=== PATIENT | female | born 1960 | race Caucasian/White ===

== ENCOUNTER 2018-03-22 13:14 | Emergency (ER) | payer OTHER ==
[~2018-03-22] VITALS: Ht 160 cm; Wt 59.0 kg
[~2018-03-22 13:14] MED LIST: HCTZ; LORAZEPAM; OMEPRAZOLE
[2018-03-22] MEDS ORDERED: ONDANSETRON HCL 4MG/2ML VIAL IV STA (14:04)
[2018-03-22] MEDS ORDERED: SODIUM CHLORIDE 0.9% 1,000 ML IV ONE (14:04)
[2018-03-22] MEDS ORDERED: FAMOTIDINE 20MG/2ML VIAL IV STA (14:04)
[2018-03-22] MEDS ORDERED: DIPHENHYDRAMINE 50MG/ML VIAL IV ONE (14:15)
[2018-03-22 14:21] LABS: BASOPHILS % 0.4 % (0.0-2.0); EOSINOPHILS % 0.3 % (0.0-5.0); HEMATOCRIT. 42.3 % (36.0-48.0); HEMOGLOBIN. 14.4 g/dL (12.0-16.0); LYMPHOCYTES % 18.8 % (20.0-50.0); MEAN CORPUSCULAR HEMOGLOBIN 28.5 pg (28.0-32.0); MEAN CORPUSCULAR VOLUME 83.9 fL (81.0-99.0); MONOCYTES % 12.3 % (2.0-8.0); NEUTROPHILS % 68.2 % (40.0-76.0); PLATELET 198 x1000/uL (130-400); RED BLOOD CELL COUNT 5.04 mill/uL (4.2-5.4); RED CELL DISTRIBUTION WIDTH 13.6 % (11.6-14.6)
[2018-03-22 14:27] LABS: CHLORIDE 100 mEq/L (98-107)
[2018-03-22 14:30] LABS: PARTIAL THROMBOPLASTIN TIME 27.5 sec (23.4-31.0); PROTHROMBIN TIME 10.4 sec (9.4-11.6)
[2018-03-22 14:59] LABS: CLARITY URINE CLOUDY (CLEAR); COLOR URINE YELLOW (YELLOW); KETONES URINE TRACE (NEGATIVE); LEUKOCYTE ESTERASE URINE TRACE (NEGATIVE); NITRITE URINE NEGATIVE (NEGATIVE); OCCULT BLOOD URINE NEGATIVE (NEGATIVE); PH URINE 8.5 (4.5-8.0); PROTEIN URINE NEGATIVE (NEGATIVE); SPECIFIC GRAVITY URINE 1.016 (1.005-1.030)
[2018-03-22] MEDS ORDERED: POTASSIUM CHLORIDE 20MEQ TABLET SR PO SCH (15:15)
[2018-03-22 18:01] VITALS: BP 118/76
== END 2018-03-22 19:00 | disposition home or self-care (01) ==
LOC: ER 13:24
DX: T50.905A Adverse effect of unspecified drugs, medicaments and biological substances, initial encounter (principal); K21.9 Gastro-esophageal reflux disease without esophagitis; K59.00 Constipation, unspecified; R51 Headache; Y92.89 Other specified places as the place of occurrence of the external cause
CPT/HCPCS: 36415; 80053; 81003; 82962; 83690; 85025; 85610; 85730; 93005; 96361; 96374; 96375; 99285; J1200; J2405; J3490; J7030

== ENCOUNTER 2018-05-28 10:04 | Emergency (ER) | payer OTHER ==
[~2018-05-28] VITALS: Ht 152.4 cm; Wt 76.0 kg
[2018-05-28] MEDS ORDERED: ONDANSETRON 4MG ODT PO ONE (13:45)
[2018-05-28] MEDS ORDERED: KETOROLAC 60MG/2ML VIAL IM ONE (13:45)
[2018-05-28 15:03] VITALS: BP 128/73
== END 2018-05-28 15:05 | disposition home or self-care (01) ==
LOC: ER 10:04
DX: K21.9 Gastro-esophageal reflux disease without esophagitis (principal); I10 Essential (primary) hypertension; Z88.5 Allergy status to narcotic agent; Z88.6 Allergy status to analgesic agent
CPT/HCPCS: 82962; 99283; J1885; Q0162